=== PATIENT | female | born 1995 | race Caucasian/White ===

== ENCOUNTER → 2019-12-14 17:05 | Outpatient (BNVA) | payer OTHER, SELFPAY | PROVIDERS: Family Provider Nurse Practitioner Family; PCP Nurse Practitioner Family; Visit Provider Obstetrics & Gynecology | DX: N93.9 Abnormal uterine and vaginal bleeding, unspecified (principal) | CPT/HCPCS: 83001; 84443; 84703; 85025 ==

== ENCOUNTER → 2019-12-20 09:10 | Outpatient (BNVA) | payer OTHER, SELFPAY | PROVIDERS: Family Provider Nurse Practitioner Family; PCP Nurse Practitioner Family; Visit Provider Obstetrics & Gynecology | DX: N83.8 Other noninflammatory disorders of ovary, fallopian tube and broad ligament (principal); R10.2 Pelvic and perineal pain | CPT/HCPCS: 76830 ==

== ENCOUNTER 2020-01-16 10:01 | Observation (INO) | payer OTHER, SELFPAY ==
--- NOTE | 2020-01-14 12:50 | P.ANESASSM_ITS ---
Pre-Anesthetic Assessment Pre-Anesthetic Assessment: Height/Weight: Height 1.57 m Weight 60.781 kg Preop Diagnosis: endometriosis Proposed Procedure: Operation Date: 01/16/20 07:00 Proposed Procedures p Total Vaginal Hysterectomy(Not Applicable) - Isaiah Lyman MD Social: Social History: Tobacco Packs per day: 1/2 Pack years: 3 Comment: quit 3y Exam: Pre-Anes Outpt Exam: alert, oriented x 3, clear to auscultation jono aterally and regular rate & rhythm Airway: Submandibular: WNL Cervical ROM: WNL MP: 1 Musc/skel: Musc/skel: Lower Back Pain Comments: nonradiating Anesthetic Plan: ASA status: 2 Anesthesia: General PFSH Anesthesia PFSH: Social History Smoking and tobacco status: current every day smoker e-cigarettes E-Cigarette Details: vaporizer device and with nicotine Alcohol intake: never Substance/Drug Use: never Female Reproductive History: Date of last menstrual period: 01/01/20 Data Anesthesia Cardiac Studies: No Data to Display
[2020-01-16] VITALS (20 sets, daily range): BP systolic 84–118; BP diastolic 50–75; PULSE 62–87; RESP 12–20; TEMP 36.4–37; O2SAT 92–100; BMI 24.5
[2020-01-16] MEDS: sodium chloride 0.9% 1,000 ML 30 ML IV (06:34)
[2020-01-16] MEDS: ketorolac 30 mg/mL INJ IVP ×4 (06:37→23:55)
[2020-01-16] MEDS: scopolamine 1.5 Patch 1 PATCH TRANSDERMA (06:38)
--- NOTE | 2020-01-16 06:40 | P.ANESUD_ITS ---
Pre-Anesthetic Update Pre-Anesthetic Assessment: Date of Surgery/Procedure: 01/16/20 Preop Molly gnosis: Chronic pelvic pain, endometriosis Proposed Procedure: Operation Date: 01/16/20 07:00 Proposed Procedures p Total Vaginal Hysterectomy(Not Applicable) - Isaiah Lyman MD Last Intake: 20:00 Vitals: Temperature 98.1 F 01/16/20 06:10 Temperature Source Temporal Artery S can 01/16/20 06:10 Pulse Rate 65 01/16/20 06:10 Respiratory Rate 18 01/16/20 06:10 Blood Pressure 109/72 01/16/20 06:10 Blood Pressure Brooke n 84 01/16/20 06:10 Pulse Oximetry 97 01/16/20 06:10 Oxygen Delivery Me thod 01/16/20 06:13 Exam: Pre-Anes Outpt Exam: alert, oriented x 3, clear to auscultation bilaterally and regular rate & rhythm Cardiac Studies: No Data to Display
[2020-01-16 06:46] LABS: OR HCG Qualitative Urine Negative (Negative)
[2020-01-16] MEDS: vancomycin 1,000 MG in sodium chloride 0.9% 250 ML 250 MG IV (06:54)
--- NOTE | 2020-01-16 06:59 | W.PM.OPSUD ---
Surgery/Procedure H&P Update DATE OF PROCEDURE: January 16, 2020 DATE H&P PERFORMED: 01/14/20 H&P UPDATE INFORMATION: I have reviewed H&P completed within last 30 days and I have examined patient prior to procedure PREOP DIAGNOSIS: Chronic pelvic pain, endometriosis PLANNED PROCEDURE: Operation Date: 01/16/20 07:00 Proposed Procedures p Total Vaginal Hysterectomy(Not Applicable) - Isaiah Lyman MD
[2020-01-16 07:04] LABS: Basophils % 0.5 %; Eosinophils # 0.1 10^3/uL (0.0-0.8); Eosinophils % 2.7 %; Hematocrit 36.9 % (37.0-47.0); Hemoglobin 12.1 g/dL (11.5-15.3); Lymphocytes # 0.9 10^3/uL (0.8-4.8); Lymphocytes % 23.8 %; Mean Corpuscular HGB Conc 32.8 g/dL (30.0-36.0); Mean Corpuscular Hemoglobin 30.7 pg (28.0-34.0); Mean Corpuscular Volume 93.7 fL (81-99); Mean Platelet Volume 10.4 fL (7.4-10.4); Monocytes # 0.7 10^3/uL (0.2-0.9); Monocytes % 17.8 %; Neutrophils % 55.2 %; Nucleated Red Blood Cells % 0 %; Platelet Count 237 10^3/cmm (130-400); Red Blood Count 3.94 10^6/uL (4.1-5.3); White Blood Count 3.7 10^3/uL (4.0-10.0)
[2020-01-16 07:13] LABS: Add Urine Microscopic? YES; Bilirubin Urine Neg (NEGATIVE); Blood Urine Neg (Negative); Glucose Urine UA Norm (Normal); Ketones Urine Negative (Negative); Leukocyte Esterase Urine Negative (Negative); Nitrate Urine Negative (Negative); Protein Urine Neg (Negative); Specific Gravity, Urine 1.015 (1.005-1.030); Urine Appearance SL Hazy (CLEAR); Urine Color Yellow (Yellow); Urobilinogen Urine Norm (Negative); pH Urine 5 (5-7)
[2020-01-16 07:14] LABS: Squamous Epithelial Cell Urine 25-40 (0-5); WBC Urine RARE /hpf (0-5)
[2020-01-16 07:15] LABS: Add Urine Culture? No; Bacteria Urine 1+
[2020-01-16 07:17] LABS: Anion Gap 15.4 (5-19); Blood Urea Nitrogen 12 mg/dL (6-20); Calcium 9.8 mg/dL (8.5-10.5); Carbon Dioxide 29 mmol/L (22-29); Chloride 99 mmol/L (98-107); Glomerular Filtration Rate 101.1 mL/min (90-130); Glucose 90 mg/dL (65-115); Osmolality Calculated 284 mOsm/kg (285-295); Potassium 4.4 mmol/L (3.5-5.1); Sodium 139 mmol/L (136-145)
[2020-01-16] MEDS: estrogens Conjugated Cream 30 gm 1 APPLIC VAGINAL (08:50)
[2020-01-16] MEDS: fentaNYL 50 mcg/mL INJ 2mL IVP ×2 (09:11→09:16)
--- NOTE | 2020-01-16 09:11 | PM.OP ---
Operative Report Date of procedure: January 16, 2020 Pre-op Diagnosis: Chronic pelvic pain, endometriosis Post-op diagnosis: same Post-op Findings: normal size uterus Procedure Done: total vaginal hysterectomy Specimens removed/disposition: uterus Pathology: uterus Surgeon: Isaiah Lyman Anesthesia: General Estimated blood loss (mL): 100 IV fluids (mL): 1,200 Urine output (mL): 750 Complications: none Condition: stable Disposition: PACU Brief History: 24-year-old female with chronic pelvic pain and endometriosis treated with multiple medical management without resolution Procedure: After informed consent and risks, benefits, indications and alternatives reviewed with the patient was taken to the operating room. The patient was placed in dorsal lithotomy position prepped, and draped in the usual sterile fashion. The pre-procedure timeout verifying the correct patient, procedure, site and side, could not requirements was performed and acknowledge by the OR team. A Leahy catheter was placed. A Bookwalter vaginal retractor was placed into the vagina in usual manner visualize the cervix. Cervix was grasped with a single tooth tenaculum and circumferentially infiltrated with 1% Xylocaine with epinephrine. Then cervix was circumferentially incised with bovie and the bladder was dissected off the pubovesical cervical fascia anteriorly with a sponge stick and Metzenbaum scissors. The anterior peritoneal reflection was identified and the anterior cul-de-sac was entered sharply with Metzenbaum scissors. The same procedure was performed posteriorly and a posterior colpotomy was made through the posterior cul-de-sac space without difficulty and the posterior blade of the Bookwalter vaginal retractor was advanced posteriorly into the cul-de-sac. At this time, the left and right uterosacral ligaments were isolated and ligated with 0 Vicryl. The Enseal device was placed over the uterosacral ligaments on either side and was then used in a serial fashion up through the cardinal ligaments bilaterally cross-clamped, cut, and sealed with the Enseal device. Finally, the uterine arteries were cross-clamped, cut, sealed and ligated with the Enseal device. Hemostasis was assured. The broad ligaments were then serially clamped, sealed and cut with the Enseal device on both sides. Excellent hemostasis was visualized. Both cornua were clamped, sealed and cut with the Enseal device. Then the pedicles were then suture ligated with excellent hemostasis. The uterus was excised and submitted for pathologic evaluation. No other abnormalities were noted in the pelvic cavity. The peritoneum was then closed in a pursestring fashion with 0 Vicryl suture. The vaginal cuff angles were closed with [id number] #0 Vicryl suture on both sides and transfixed with the ipsilateral cardinal and uterosacral ligaments. she was given indigo carmine IV. The remainder of the vaginal cuff was closed with #0 Vicryl in a running locked fashion. At this time, instruments were removed from the vagina at hemostasis assured. Then the Leahy catheter was removed and cystoscope was inserted. The bladder was filled with sterile water. Complete evaluation of the bladder mucosa was performed noting no lacerations, dimpling, tears, bleeding of the mucosa or muscular layers. Both ureteral orifices were identified. Prompt excretion of urine from both ureteral orifices was noted. Cystoscope was withdrawn. Leahy catheter was then placed yielding clear blue/dinesh urine. A vaginal packing with Premarin cream was placed and the patient was taken out of dorsal lithotomy position and awakened from the general anesthesia. The patient tolerated the procedure well and was taken to the PACU recovery room in a stable condition. Sponge, lap, needle and instruments counts were correct x3.
[2020-01-16] MEDS: HYDROcodone-acetaminophen 5-325 mg Tablet PO ×3 (10:16→22:02)
[2020-01-16] MEDS: gabapentin 300 mg Capsule 600 MG PO ×3 (12:20→21:08)
[2020-01-16] MEDS: dextrose 5%-lactated ringers 1,000 ML 125 ML IV ×2 (12:20→21:08)
--- NOTE | 2020-01-16 12:42 | PC.NURSE ---
Patient updated on attempt to contact Dr. Lyman, and that this press writer will attempt to contact him again in about [address] Lyman hasn't returned call to the floor.
[2020-01-16] MEDS: HYDROmorphone 1 mg/mL INJ 1 mL 1.5 MG IVP ×2 (13:01→18:53)
--- NOTE | 2020-01-16 15:05 | PC.NURSE ---
This nurse in room due to BP machine alarming. BP was 67/32. Pt appeared very drowsy was able to open her eyes and answer all of my questions appropriately. She stated that she was not light headed or dizzy. She stated that she felt fine, but she was just tired. She stated that she was given a dose of Dilaudid about 2 hours ago. No further needs were voiced. This nurse will notify her primary nurse with an update.
[2020-01-16 16:33] LABS: Hematocrit 35.2 % (37.0-47.0); Hemoglobin 11.4 g/dL (11.5-15.3); Mean Corpuscular HGB Conc 32.4 g/dL (30.0-36.0); Mean Corpuscular Hemoglobin 30.4 pg (28.0-34.0); Mean Corpuscular Volume 93.9 fL (81-99); Mean Platelet Volume 10.3 fL (7.4-10.4); Platelet Count 229 10^3/cmm (130-400); Red Blood Count 3.75 10^6/uL (4.1-5.3); Red Cell Distribution Width 10.9 % (12.1-15.1); White Blood Count 5.6 10^3/uL (4.0-10.0)
[2020-01-16 16:49] LABS: Band Neutrophils Absolute 0.2 10^3/cmm (0.0-1.2); Lymphocytes 5 %; Monocytes Absolute 0.1 10^3/cmm (0.1-0.6); Segmented Neutrophils 91 %; Total Cells Counted 100 (0-100)
[2020-01-16 16:50] LABS: Platelet Estimate Normal (Normal)
--- NOTE | 2020-01-16 17:05 | PC.NURSE ---
Patient ambulated 1 time up OB hallway and back to her room. Tolerated well, denying any dizziness weakness or lightheadedness.
[2020-01-16] MEDS: docusate sodium 100 mg Capsule PO (18:56)
[2020-01-17 00:48] VITALS: RESP 16; O2SAT 97
[2020-01-17] MEDS: HYDROmorphone 1 mg/mL INJ 1 mL 1.5 MG IVP (00:48)
[2020-01-17] MEDS: HYDROcodone-acetaminophen 5-325 mg Tablet PO ×2 (04:49→11:06)
[2020-01-17 05:00] VITALS: BP 77/54; PULSE 72; RESP 14; TEMP 36.9; O2SAT 96
[2020-01-17 05:32] LABS: Hematocrit 32.4 % (37.0-47.0); Hemoglobin 10.3 g/dL (11.5-15.3); Mean Corpuscular HGB Conc 31.8 g/dL (30.0-36.0); Mean Corpuscular Hemoglobin 30.4 pg (28.0-34.0); Mean Corpuscular Volume 95.6 fL (81-99); Mean Platelet Volume 10.3 fL (7.4-10.4); Platelet Count 184 10^3/cmm (130-400); Red Blood Count 3.39 10^6/uL (4.1-5.3); Red Cell Distribution Width 11.2 % (12.1-15.1); White Blood Count 4.6 10^3/uL (4.0-10.0)
--- NOTE | 2020-01-17 06:16 | PC.NURSE ---
Patient complaints of pain an 8 out of 10. Nurse notes respirations of 12 and patient appearing groggy. O2 is 97% on room air.
--- NOTE | 2020-01-17 06:19 | PC.NURSE ---
Vaginal packing removed at this time.
[2020-01-17] MEDS: gabapentin 300 mg Capsule 600 MG PO (08:04)
[2020-01-17] MEDS: docusate sodium 100 mg Capsule PO (08:04)
[2020-01-17 09:15] VITALS: BP 94/55; PULSE 81; RESP 17; TEMP 36.9
--- NOTE | 2020-01-17 10:08 | PM.OBGYDC ---
Discharge Providers DOUGH PUNCHER Date of Admission: 01/16/20 10:01 Date of Discharge: 01/17/20 Attending Provider at Admission: Isaiah Lyman MD Attending Provider at Discharge: Isaiah Lyman MD Primary Care Provider: Dominique Tobar Diagnoses at Discharge Discharge Diagnosis (1) Chronic pelvic pain in female: Status: Acute Problem details: She was counseled regarding all the possible etiologies of chronic pelvic pain, its evaluation and treatment will depend on the diagnosis causing the pelvic pain. The pains is a closely associated with severe dysmenorrhea and highly suggestive of the possibility of endometriosis. (2) Endometriosis: Status: Acute Reason for Visit Reason for Visit: Reason For Visit: Endometriosis Chronic Pelvic [place] 23802 N80.9 R10.2 Hospital Course Hospital Course: 24-year-old female with a long-standing history of chronic pelvic pain Admitted for planned Total vaginal hysterectomy. The procedure was performed without complications. Stop observation uneventful. Pain tolerated with medical management pain medication. She is tolerating diet well, ambulating without difficulty, passing flatus, afebrile and hemodynamically stable. Physical Exam Narrative: EXAM NARRATIVE: GA: Alert and oriented ?3. HEENT: WNL. Heart: Regular rate and rhythm. Lungs: Clear to auscultation bilaterally. Abdomen: Bowel sounds present, nontender. LIQUEFACTION SUPERVISOR: No bleeding. Extremities: No edema, no cyanosis, no calves pain. Urinary Catheter Management^: Leahy Latex Free: Cath Placed During This Visit: no Reason for Continuing Indwelling Catheter: Perioperative Use in Selected Surgeries Discharge Data Data Completed and Pending: Pending at discharge Category Date Time Status Pathology: Surgic al [PTH] Routine Pth 01/16/20 09:05 Received Labs from last 24 hours 01/17/20 01/16/20 05:15 15:47 WBC 4.6 5.6 RBC 3.39 L 3.75 L Hgb 10.3 L 11.4 L Hct 32.4 L 35.2 L MCV 95.6 93.9 MCH 30.4 30.4 MCHC 31.8 32.4 RDW 11.2 L 10.9 L Plt Count 184 229 MPV 10.3 10.3 Total Counted 100 Segmented Neutroph ils 91 Band Neutrophils 3.0 Lymphocytes (Manua l) 5 Monocytes (Manual) 1.0 Absolute Monocytes 0.1 Platelet Estimate Normal Addt'l Data from Hospital Stay: Intake & Output 03/18/20 03/19/20 03/19/20 22:59 06:59 14:59 Intake Total 1000.000 / 2878.50 0 Output Total 900 / 3600 1150 / 4750 Balance 100.000 / -721.500 -1150 / -1871.500 Intake: IV 1000.000 / 2357.50 0 dextrose 5%-la ctated ringers 1, 1000.000 / 1000.00 0 000 ml @ 125 m ls/hr IV .Q8H NILSA Rx#:[id number] Output: Urine 900 / 3500 1150 / 4650 Vitals: Last Vital Signs Temp 98.5 F 01/17/20 05:00 Pulse 72 01/17/20 05:00 Resp 14 01/17/20 05:00 BP 77/54 01/17/20 05:00 Pulse Ox 96 01/17/20 05:00 Discharge Plan Discharge Patient Disposition: Home, Self-Care Condition: Stable Prescriptions: New ibuprofen 800 mg tablet 800 mg PO Q8H PRN (Reason: pain) Qty: 60 RF: 0 Continued tizanidine 4 mg capsule 4 mg PO DAILY PRN (Reason: Pain) RF: 0 hydrocodone-acetaminophen 10-300 mg tablet 1 tab PO Q6H MDD 5 PRN (Reason: Pain) RF: 0 escitalopram oxalate [Lexapro] 20 mg tablet 20 mg PO DAILY RF: 0 gabapentin 100 mg capsule 600 mg PO QID RF: 0 Discharge Orders: Discharge Order (Routine); Ordered 01/17/20 Ordered By: Isaiah Lyman Discharge Diet: As Directed Discharge Activity: Increase activity as tolerated Activity Restrictions/Additional Instructions: Pelvic rest for 6 weeks (no sex, no tampons, no vaginal douches). Return to the emergency room if any fever, increased bleeding or pain. 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
== END 2020-01-17 11:50 | disposition home or self-care (01) ==
LOC: OBGYN 10:02
PROVIDERS: Admitting Provider Obstetrics & Gynecology; PCP Nurse Practitioner Family; Visit Provider Obstetrics & Gynecology
PROC: (CPT 58260; principal; 2020-01-16 07:00)
DX: R10.2 Pelvic and perineal pain (principal); N80.9 Endometriosis, unspecified; F17.290 Nicotine dependence, other tobacco product, uncomplicated
CPT/HCPCS: 58260; 12345; 36415; 80048; 81001; 84703; 85007; 85025; 85027; 86850; 86900; 88307; 96374; 96375; G0378; J1100; J1170; J1580; J1885; J2001; J2405; J2704; J2710; J3010; J3370; J3490; J7030; J7050

== ENCOUNTER → 2020-03-07 13:07 | Outpatient (BNVA) | payer OTHER, SELFPAY | PROVIDERS: PCP Nurse Practitioner Family; Visit Provider Obstetrics & Gynecology | DX: R30.0 Dysuria (principal) | CPT/HCPCS: 80053; 81000 ==

== ENCOUNTER 2021-01-27 09:54 | Emergency (ER) | payer OTHER, SELFPAY ==
[2021-01-27 09:56] VITALS: BP 122/101; PULSE 97; RESP 16; TEMP 36.8; O2SAT 97; BMI 24.7
[2021-01-27 10:01] VITALS: BP 130/93; PULSE 105; RESP 16; O2SAT 97
--- NOTE | 2021-01-27 10:06 | CT_ITS ---
WS: [id number] CT CERVICAL SPINE HISTORY: neck pain with R arm radiculopathy TECHNIQUE: Contiguous 2.5 mm axial imaging performed through the entire cervical spine. Sagittal and coronal reformats also performed. All CT scans at [facility] use at least one of these do se optimization techniques: automated exposure control; mA and/or kV adjustment per patient size (inc ludes targeted exams where dose is matched to clinical indication); or iterative reconstruction. DLP: 325.14 mGy.cm COMPARISON: None available. Normal cervical alignment. Craniocervical junction, atlantodental interval and C1-C2 alignment is nor mal. Patient's head is tilted to the LEFT which may be due to torticollis and spasm. C2-C3: Normal. C3-C4: Normal. C4-C5: Normal. C5-C6: Normal. C6-C7: Normal. C7-T1: Normal. Soft tissues are normal. Lung apices are clear. CT/CT cervical spin wo con* [id number] IMPRESSION: 1. Patient's head is slightly tilted to the LEFT which may be due to mild spas m. 2. No fractures or significant disc protrusions.
--- NOTE | 2021-01-27 10:07 | ED_ITS ---
HPI - Extremity Problem General: Chief complaint: Extremity Injury, Upper Stated complaint: RIGHT SHOULDER PAIN Time Seen by Provider: 01/27/21 09:57 History of Present Illness: HPI Narrative: 25-year-old female presents emergency room with complaint of neck pain radiating into her right shoulder and right arm difficulty moving the right arm. She was seen by chiropractor yesterday and they did what they described as a scraping . Evidently the massage of the skin is resulted in a massive amount of bruising over the right upper back and scapula across the shoulder and down into the upper portion of the right arm. Complaint: extremity pain Onset (ago): hour(s) Pain Consistency: constant Location: right Quality: burning, aching and sharp Radiation: distal Relieving factors: nothing Exacerbating factors: range of motion Associated symptoms: Deny chest pain, fever(s) or rash Review of Systems Const: Denies: fever(s), chills, body aches, change in appetite, fatigue or malaise ENMT: Denies: throat pain, ear or mastoid pain, nasal discharge or nasal congestion Card: Denies: chest pain, edema, dyspnea on exertion or orthopnea Resp: Denies: dyspnea, productive cough or non-productive cough GI: Denies: abdominal pain, nausea, vomiting, hematemesis, coffee ground emesis, diarrhea, constipation, bloating, hematochezia or melena : Denies: flank pain, difficulty voiding, dysuria, urinary frequency or urinary urgency Skin/Breast: Denies: rash or pruritus PFS ED PFSH: Medical History Abnormal uterine bleeding 20-year-old female , with a history of chronic pelvic pain for the last 3 years, associated with severe dysmenorrhea and occasional irregular bleeding. Impression: She was counseled regarding all possible etiologies for normal uterine bleeding. Was also counseled regarding all possible treatment modalities. She refers she has previously been prescribed oral contraceptive pills and hormones and she refers her bleeding was worse while taking control pills. She is currently not using any contraceptive because she is trying to conceive, and her menses have been regular the last 6 months. Recorded 02/17/2018 04:58 PM by Muriel Jimenez MD Chronic pelvic pain in female She was counseled regarding all the possible etiologies of chronic pelvic pain, its evaluation and treatment will depend on the diagnosis causing the pelvic pain. The pains is a closely associated with severe dysmenorrhea and highly suggestive of the possibility of endometriosis. Endometriosis Severe dysmenorrhea 20-year-old female , with a history of chronic pelvic pain for the last 3 years, associated with severe dysmenorrhea and occasional irregular bleeding. Impression: Patient was counseled regarding all possible etiologies for severe dysmenorrhea. Most commonly the diagnosis that can be inferred with severe dysmenorrhea is endometriosis. She had been diagnosed with endometriosis and treated with Lupron. She was counseled regarding all treatment modalities again. Because of her plans for conceiving, hormonal therapy is not a choice for her. She was counseled regarding NSAIDs. She has been using NSAIDs as prescribed and she refers a significant improvement and can tell when she is not taking it as prescribed. She was encourage to continue NSAIDs. She was counseled regarding HSG to asses the fallopian tubes if she is not able to conceive. Follow-up in 3 months. Recorded 06/12/2018 09:[address] Isaiah Chicas MD Surgical History H/O laparoscopy (~2016) DR CHICAS History of tonsillectomy (~2011) Hx of appendectomy Family History Father Bipolar disorder (manic depression) Fibromyalgia Family/Other Ovarian cancer, Onset Age: 40 Maternal aunt Thyroid condition maternal aunt Other Patient denies medical problems Denies family history of Colon cancer Diabetes Heart disease Hyperlipidemia Breast cancer Hypertension Uterine cancer Social History Smoking and tobacco status: current every day smoker Alcohol intake: never Female Reproductive History: Date of last menstrual period: 01/01/20 Para: 1 Spontaneous abortions: Yes (1) Physical Exam Const: COMMON NORMALS: no acute distress GENERAL APPEARANCE: cooperative and comfortable ORIENTATION/CONSCIOUSNESS: Yes awake, Yes oriented to person, Yes oriented to place and Yes oriented to time HENMT: COMMON NORMALS: normocephalic, atraumatic and hearing grossly normal bilaterally HEAD & SCALP: normocephalic and atraumatic Eye: COMMON NORMALS: Equal, round and reactive pupils present, EOMs intact bilaterally, conjunctivae normal and no scleral icterus CONJUNCTIVA: Yes conjunctivae normal PUPIL: Yes Equal, round and reactive pupils present Neck/C-Spine: COMMON NORMALS: no lymphadenopathy, supple and no JVD Lymph: LYMPHATIC: no lymphadenopathy noted and no lymphedema noted Resp: COMMON NORMALS: normal respiratory effort, No retractions, No use of accessory muscles and clear to auscultation bilaterally AUSCULTATION: clear t o auscultation bilaterally Cardio: COMMON NORMALS: no JVD, regular rate, regular rhythm and No murmurs present (Cardio) RATE: regular rate RHYTHM: regular rhythm GI: COMMON NORMALS: Soft to palpation and No hepatosplenomegaly present AUSCULTATION: Yes normoactive bowel sounds PALPATION: Yes Soft to palpation, No Tenderness to palpation present (GI), No Guarding due to palpation present (GI) and Yes No hepatosplenomegaly present Extremity: COMMON NORMALS: normal to inspection, capillary refill normal, no clubbing, cyanosis or edema, no calf tenderness and no pedal edema Neuro: SENSORIUM/ORIENTATION: Yes oriented to person, Yes oriented to place and Yes oriented to time Skin: COMMON NORMALS: no rashes or lesions noted GENERAL SKIN EXAM: no rashes or lesions noted Course Vital Signs: Vital signs: Vital Signs Temperature 98.3 F 01/27/21 09:56 Pulse Rate 69 01/27/21 11:29 Respiratory Rate 18 01/27/21 11:29 Blood Pressure 117/83 01/27/21 11:29 Pulse Oximetry 99 01/27/21 11:29 MDM - Extremity (Nontraumatic) MDM Narrative: Medical decision making narrative: CT reviewed with patient gentle stretching exercises muscle relaxers follow-up with primary care if not improving may need to get more advanced imaging Lab Data: Labs: Lab Results 01/27/21 01/27/21 Range/Units 10:14 10:14 WBC 6.8 (4.0-10.0) 10^3/ uL RBC 4.81 (4.1-5.3) 10^6/u L Hgb 14.9 (11.5-15.3) g/dL Hct 44.3 (37.0-47.0) % MCV 92.1 (81-99) fL MCH 31.0 (28.0-34.0) pg MCHC 33.6 (30.0-36.0) g/dL RDW 11.2 L (12.1-15.1) % Plt Count 289 (130-400) 10^3/c mm MPV 9.7 (7.4-10.4) fL Neut % (Auto) 77.4 % Lymph % (Auto) 17.3 % Marion % (Auto) 4.5 % Eos % (Auto) 0.4 % Baso % (Auto) 0.3 % Neut # (Auto) 5.29 (1.8-7.7) 10^3/u L Lymph # (Auto) 1.2 (0.8-4.8) 10^3/u L Marion # (Auto) 0.3 (0.2-0.9) 10^3/u L Eos # (Auto) 0.0 (0.0-0.8) 10^3/u L Baso # (Auto) 0.0 (0.0-0.1) 10^3/u L Nucleated RBC % (a uto) 0 % Nucleated RBCs # 0.0 /100WBC Sodium 137 (136-145) mmol/L Potassium 3.9 (3.5-5.1) mmol/L Chloride 100 (98-107) mmol/L Carbon Dioxide 25 (22-29) mmol/L Anion Gap 15.9 (5-19) BUN 17 (6-20) mg/dL Creatinine 0.6 (0.5-0.9) mg/dL GFR Calculation 119.9 (90-130) mL/min Glucose 86 (65-115) mg/dL Calculated Osmolal ity 285 (285-295) mOsm/k g Calcium 9.6 (8.5-10.5) mg/dL Creatine Kinase 82 (26-192) U/L Discharge Plan Discharge Patient Disposition: Home Clinical Impression: Cervicalgia Condition: Stable Prescriptions: New diclofenac sodium 75 mg tablet,delayed release (DR/EC) 75 mg PO Q12H PRN (Reason: pain) Qty: 20 RF: 0 Medrol (Darvin) 4 mg tablets,dose pack See Rx Instructions .ROUTE .COMPLEX Qty: 21 RF: 0 tizanidine 4 mg tablet 4 mg PO Q6H PRN (Reason: muscle spasticity) Qty: 20 RF: 0 No Action hydrocodone-acetaminophen 10-300 mg tablet 1 tab PO Q6H MDD 5 PRN (Reason: Pain) RF: 0 escitalopram oxalate [Lexapro] 20 mg tablet 20 mg PO DAILY RF: 0 tizanidine 4 mg capsule See Rx Instructions PO BID PRN (Reason: Pain) RF: 0 gabapentin 100 mg capsule 600 mg PO QID RF: 0 alprazolam [Xanax] 0.25 mg tablet 0.25 mg PO DAILY PRNRF: 0 fluconazole [Diflucan] 150 mg tablet 150 mg PO DAILY Qty: 1 RF: 0 Discharge Orders: Discharge ED (Routine); Ordered 01/27/21 Ordered By: Pal Gaston Referrals: Dominique Tobar [Primary Care Provider] - Patient Instructions: Opioid Safety Activity Restrictions/Additional Instructions: Follow-up with your primary care doctor. Case management will help you arrange for a new PCP. Coding Level of Care Code ED Supervisor Ticket Sales for Chris Pulido
[2021-01-27 10:26] LABS: Basophils % 0.3 %; Eosinophils % 0.4 %; Hematocrit 44.3 % (37.0-47.0); Hemoglobin 14.9 g/dL (11.5-15.3); Lymphocytes # 1.2 10^3/uL (0.8-4.8); Lymphocytes % 17.3 %; Mean Corpuscular HGB Conc 33.6 g/dL (30.0-36.0); Mean Corpuscular Volume 92.1 fL (81-99); Mean Platelet Volume 9.7 fL (7.4-10.4); Monocytes # 0.3 10^3/uL (0.2-0.9); Monocytes % 4.5 %; Neutrophils # 5.29 10^3/uL (1.8-7.7); Neutrophils % 77.4 %; Nucleated Red Blood Cells % 0 %; Platelet Count 289 10^3/cmm (130-400); Red Blood Count 4.81 10^6/uL (4.1-5.3); Red Cell Distribution Width 11.2 % (12.1-15.1); White Blood Count 6.8 10^3/uL (4.0-10.0)
[2021-01-27] MEDS: ketorolac 30 mg/mL INJ IVP (10:41)
[2021-01-27 10:42] VITALS: RESP 18; O2SAT 98
[2021-01-27] MEDS: orphenadrine 30 mg/mL Inj 2 mL 60 MG IVP (10:42)
[2021-01-27] MEDS: morphine 4 mg/mL SDV 1 mL IVP (10:42)
[2021-01-27 10:48] LABS: Anion Gap 15.9 (5-19); Blood Urea Nitrogen 17 mg/dL (6-20); Calcium 9.6 mg/dL (8.5-10.5); Carbon Dioxide 25 mmol/L (22-29); Chloride 100 mmol/L (98-107); Creatine Phosphokinase 82 U/L (26-192); Creatinine Clr Calc Pharmacy 121.2943; Glomerular Filtration Rate 119.9 mL/min (90-130); Glucose 86 mg/dL (65-115); Osmolality Calculated 285 mOsm/kg (285-295); Potassium 3.9 mmol/L (3.5-5.1); Sodium 137 mmol/L (136-145)
[2021-01-27 11:29] VITALS: BP 117/83; PULSE 69; RESP 18; O2SAT 99
--- NOTE | 2021-01-29 13:20 | DCPLANNER ---
family services manager had message to speak with patient about getting established with a primary care physician. family services manager spoke with patient and she stated that she would like to be set up with a primary care physician at the [facility]. family services manager called the [facility], spoke with Fernanda, a follow up appointment was scheduled for Tuesday. February 03, 2021 at 9:30 with Letty Stiles. family services manager called patient and gave patient the appointment information. Patient stated that she would attend the appointment.
--- NOTE | 2021-02-11 13:19 | DCPLANNER ---
Patient had a follow up appointment scheduled for 02.03.21 with the [facility] clinic to establish care for primary care - patient did attend appointment.
== END 2021-01-27 11:30 | disposition home or self-care (01) ==
PROVIDERS: Emergency Provider Family Medicine; PCP Nurse Practitioner Family
DX: M54.2 Cervicalgia (principal); F17.210 Nicotine dependence, cigarettes, uncomplicated
CPT/HCPCS: 72125; 80048; 82550; 85025; 96374; 96375; 99284; J1885; J2270; J2360; J2930

== ENCOUNTER → 2022-05-24 08:59 | Outpatient (BNVA) | payer BC, SELFPAY | PROVIDERS: PCP Family Medicine Adult Medicine; Visit Provider Anesthesiology Pain Medicine | DX: G89.29 Other chronic pain (principal); M54.16 Radiculopathy, lumbar region; M54.41 Lumbago with sciatica, right side; M54.42 Lumbago with sciatica, left side; M79.604 Pain in right leg; M79.605 Pain in left leg; F17.290 Nicotine dependence, other tobacco product, uncomplicated | CPT/HCPCS: 72110; 99204 ==

== ENCOUNTER 2022-06-09 09:36 | Emergency (ER) | payer BC, MEDICAID, SELFPAY ==
[2022-06-09 10:16] VITALS: BP 128/83; PULSE 80; RESP 14; TEMP 36.8; O2SAT 97; BMI 26.3
--- NOTE | 2022-06-09 12:21 | US_ITS ---
WS: [id number] TRANSABDOMINAL PELVIC AND TRANSVAGINAL PELVIC ULTRASOUND HISTORY: Left pelvic pain COMPARISON: 12/20/2019 and 02/17/2018 Prior hysterectomy. No midline mass. Right ovary: 3.4 cm x 1.8 cm x 3.2 cm. Small caliber ovary. Several small peripheral cysts. Normal va scularity. No solid mass. Left ovary: 6.6 cm x 3.9 cm x 5.5 cm. Abnormal appearance of the LEFT adnexa. There is a hypoechoic, homogeneous mass of decreased echogenicity. This has been previously described and thought to be an e ndometrioma on prior studies. This solid homogeneous mass measures 3.6 x 2.5 x 2.2 cm and has been pr eviously described. Adjacent to this LEFT adnexal mass is a complex cystic structure with septations and low level echoes which is new. This additional mass measures 5.5 x 3.8 x 5.4 cm and displaces the endometrioma slightly inferior. There is a small amount of free fluid in the LEFT adnexa. This new m ass is probably a hemorrhagic cyst. US/US pelvic with transvaginal IMPRESSION: 1. New complex cystic mass with septations in the LEFT adnexa. This new mass i s probably a hemorrhagic cyst measuring 5.5 x 3.8 x 5.4 cm. Differential would include new endometrioma. Due to its large size short-term follow-up is recomme nded in 6-8 weeks to ensure resolution. 2. Additional homogeneous mass in the LEFT adnexa has been previously describe d and thought to be an endometrioma. 3. Small amount of free fluid in the cul-de-sac. 4. Prior hysterectomy.
--- NOTE | 2022-06-09 12:22 | ED_ITS ---
HPI - Abdominal Pain General: Chief Complaint: Abdominal Pain Stated Complaint: Abd pains Time Seen by Provider: 06/09/22 12:06 History of Present Illness: Patient is a 26-year-old female comes to the ED with abdominal pain. Patient has chronic pelvic pain and has been dealing with it for over the past [address] Chicas and he is done work-up on her pelvic pain. She has been diagnosed with endometriosis and has had a partial hysterectomy. Last night patient states her chronic pelvic pain got more severe and she currently rates it an 8 out of 10. Pain is in the left side of her pelvis. She endorses having some nausea and has vomited twice this morning. Denies any fevers, vaginal bleeding, dysuria, hematuria, constipation or diarrhea. Associated Symptoms: Reports nausea and vomiting; Denies chills, constipation, diarrhea, dysuria, fever(s), hematochezia and hematuria Related Data: Date of Last Menstrual Period: 01/01/20 Review of Systems Const: Denies: fever(s), chills or fatigue Eyes: Denies: change in vision or eye discomfort ENMT: Denies: throat pain, odynophagia, nasal discharge or nasal congestion Card: Denies: chest pain, palpitations, edema, swelling of feet/ankles, dyspnea on exertion or orthopnea Resp: Denies: dyspnea, productive cough or non-productive cough GI: Reports: nausea and vomiting; Denies: abdominal pain, diarrhea, constipation or hematochezia : Reports: pelvic pain (Left sided pelvic pain); Denies: flank pain, dysuria or hematuria Musc: Denies: neck pain, back pain or extremity swelling Skin/Breast: Denies: rash or new lesions Neuro: Denies: headache(s), numbness in extremities or weakness in extremities PFS ED PFSH: Medical History Aftercare following surgery of the genitourinary system Cervical myofascial strain Chronic low back pain with bilateral sciatica Chronic pelvic pain in female Depression Endometriosis with chronic pelvic pain Severe dysmenorrhea 20-year-old female , with a history of chronic pelvic pain for the last 3 years, associated with severe dysmenorrhea and occasional irregular bleeding. Impression: Patient was counseled regarding all possible etiologies for severe dysmenorrhea. Most commonly the diagnosis that can be inferred with severe dysmenorrhea is endometriosis. She had been diagnosed with endometriosis and treated with Lupron. She was counseled regarding all treatment modalities again. Because of her plans for conceiving, hormonal therapy is not a choice for her. She was counseled regarding NSAIDs. She has been using NSAIDs as prescribed and she refers a significant improvement and can tell when she is not taking it as prescribed. She was encourage to continue NSAIDs. She was counseled regarding HSG to asses the fallopian tubes if she is not able to conceive. Follow-up in 3 months. Recorded 06/12/2018 09:[address] Isaiah Chicas MD Surgical History H/O laparoscopy (~2016) DR CHICAS H/O: hysterectomy 01/16/2020- TVH per Dr. Chicas at [facility] History of tonsillectomy (~2011) Hx of appendectomy Family History Father Bipolar disorder (manic depression) Fibromyalgia Family/Other Ovarian cancer, Onset Age: 40 Maternal aunt Thyroid condition maternal aunt Other Patient denies medical problems Denies family history of Colon cancer Diabetes Heart disease Hyperlipidemia Breast cancer Hypertension Uterine cancer Social History History of recent travel: No Female Reproductive History: Date of last menstrual period: 01/01/20 Para: 1 Spontaneous abortions: Yes (1) Physical Exam Const: COMMON NORMALS: patient oriented x3 and alert GENERAL APPEARANCE: cooperative and comfortable HENMT: COMMON NORMALS: normocephalic HEAD & SCALP: normocephalic MOUTH: Normal oral and palatal mucosa present THROAT: posterior oropharynx normal and uvula midline Neck/C-Spine: COMMON NORMALS: supple GENERAL: Yes normal visual inspection Resp: COMMON NORMALS: normal respiratory effort, No retractions, No use of accessory muscles and clear to auscultation bilaterally AUSCULTATION: clear to auscultation bilaterally Cardio: COMMON NORMALS: regular rate, regular rhythm, S1 normal heart sound present, S2 normal heart sound present, No gallops present (Cardio), No clicks present (Cardio), No murmurs present (Cardio) and Peripheral pulses 2+ throughout RATE: regular rate RHYTHM: regular rhythm HEART SOUNDS: S1 normal heart sound present and S2 normal heart sound present PERIPHERAL PULSES: Peripheral pulses 2+ throughout GI: COMMON NORMALS: Normal to inspection, nondistended, normoactive bowel soun ds present, Soft to palpation and no masses PALPATION: Yes Soft to palpation and Yes Tenderness to palpation present (GI) (Left lower pelvic region) : COMMON NORMALS: Yes no CVA tenderness BLADDER/KIDNEY EXAM: Yes no CVA tenderness Back/Pelvis: COMMON NORMALS: no CVA tenderness Extremity: COMMON NORMALS: normal to inspection Neuro: COMMON NORMALS: patient oriented x3 SENSORIUM/ORIENTATION: Yes alert GAIT: Yes Normal gait present Skin: GENERAL SKIN EXAM: dry skin Course Vital Signs: Vital signs: Vital Signs Temperature 98.0 F 06/09/22 14:56 Pulse Rate 76 06/09/22 15:18 Respiratory Rate 14 06/09/22 15:18 Blood Pressure 122/68 06/09/22 15:18 Pulse Oximetry 99 06/09/22 15:18 Oxygen Delivery Me thod 06/09/22 14:56 MDM - Abdominal Pain Medical Decision Making Patient is a 26-year-old female comes to the ED with abdominal pain. Patient has chronic pelvic pain and has been dealing with it for over the past [address] Chicas and he is done work-up on her pelvic pain. She has been diagnosed with endometriosis and has had a partial hysterectomy. Vitals are stable. Patient appears nontoxic and in no acute distress or pain. She has left pelvic tenderness upon palpation. Labs are all unremarkable. Ultrasound of the pelvis shows a new complex left hemorrhagic cyst. Patient was stable for discharge home and diagnosed with a hemorrhagic cyst and pelvic pain. She has follow-up with Dr. Chicas in the next couple weeks. Return to ED precautions given. She was discharged home with Celebrex for pain. Return to ED precautions given. Patient understood and agreed with plan. Lab Data I reviewed the patient's lab results. : 06/09/22 13:30 06/09/22 13:30 Labs/Radiology: Radiology Impressions Pelvic/Transvag US 06/09/22 12:21 IMPRESSION: 1. New complex cystic mass with septations in the LEFT adnexa. This new mass is probably a hemorrhagic cyst measuring 5.5 x 3.8 x 5.4 cm. Differential would include new endometrioma. Due to its large size short-term follow-up is recommended in 6-8 weeks to ensure resolution. 2. Additional homogeneous mass in the LEFT adnexa has been previously described and thought to be an endometrioma. 3. Small amount of free fluid in the cul-de-sac. 4. Prior hysterectomy. Laboratory Results WBC 8.1 10^3/uL (4.0-10.0) 06/09/22 13:30 RBC 4.27 10^6/uL (4.1-5.3) 06/09/22 13:30 Hgb 12.9 g/dL (11.5-15.3) 06/09/22 13: Hct 39.4 % (37.0-47.0) 06/09/22 13: MCV 92.3 fl (81-99) 06/09/22 13:30 MCH 30.2 pg (28.0-34.0) 06/09/22 13: MCHC 32.7 g/dL (30.0-36.0) 06/09/22 13: RDW 11.1 % (12.1-15.1) L 06/09/22 13:30 Plt Count 285 10^3/cmm (130-400) 06/09/22 13:30 MPV 9.7 fL (7.4-10.4) 06/09/22 13:30 Neut % (Auto) 70.9 % 06/09/22 13:30 Lymph % (Auto) 20.0 % 06/09/22 13:30 Bates % (Auto) 7.2 % 06/09/22 13:30 Eos % (Auto) 1.4 % 06/09/22 13:30 Baso % (Auto) 0.4 % 06/09/22 13:30 Neut # (Auto) 5.71 10^3/uL (1.8-7.7) 06/09/22 13:30 Lymph # (Auto) 1.6 10^3/uL (0.8-4.8) 06/09/22 13:30 Bates # (Auto) 0.6 10^3/uL (0.2-0.9) 06/09/22 13:30 Eos # (Auto) 0.1 10^3/uL (0.0-0.8) 06/09/22 13:30 Baso # (Auto) 0.0 10^3/uL (0.0-0.1) 06/09/22 13:30 Nucleated RBC % (auto) 0 % 06/09/22 13:30 Nucleated RBCs # 0.0 /100WBC 06/09/22 13:30 Sodium 139 mmol/L (136-145) 06/09/22 13:30 Potassium 4.3 mmol/L (3.5-5.1) 06/09/22 13:30 Chloride 103 mmol/L (98-107) 06/09/22 13:30 Carbon Dioxide 25 mmol/L (22-29) 06/09/22 13:30 Anion Gap 15.3 (5-19) 06/09/22 13:30 BUN 16 mg/dL (6-20) 06/09/22 13:30 Creatinine 0.7 mg/dL (0.5-0.9) 06/09/22 13:30 GFR Calculation 99.6 mL/min (90-130) 06/09/22 13:30 Glucose 85 mg/dL (65-115) 06/09/22 13:30 Calculated Osmolality 288 mOsm/kg (285-295) 06/09/22 13:30 Calcium 9.3 mg/dL (8.5-10.5) 06/09/22 13:30 Total Bilirubin 0.2 mg/dL (0.15-1.2) 06/09/22 13:30 AST 15 U/L (0-32) 06/09/22 13:30 ALT 9 U/L (0-33) 06/09/22 13:30 Alkaline Phosphatase 55 IU/L (35-105) 06/09/22 13:30 Total Protein 6.7 g/dL (6.6-8.7) 06/09/22 13:30 Albumin 4.4 g/dL (3.5-5.2) 06/09/22 13:30 Globulin 2.3 g/dL (1.3-4.6) 06/09/22 13:30 HCG, Qual Cancelled 06/09/22 13:30 Urine Color Yellow (Yellow) 06/09/22 12:12 Urine Appearance Clear (CLEAR) 06/09/22 12:12 Urine pH 6 (5-7) 06/09/22 12:12 Ur Specific [place] 1.010 (1.005-1.030) 06/09/22 12:12 Urine Protein Neg (Negative) 06/09/22 12:12 Urine Glucose (UA) Norm (Normal) 06/09/22 12:12 Urine Ketones Negative (Negative) 06/09/22 12:12 Urine Blood Neg (Negative) 06/09/22 12:12 Urine Nitrate Negative (Negative) 06/09/22 12:12 Urine Bilirubin Neg (Negative) 06/09/22 12:12 Urine Urobilinogen Norm mg/dL (Negative) 06/09/22 12:12 Ur Leukocyte Esterase Negative (Negative) 06/09/22 12:12 Discharge Plan Discharge Patient Disposition: Home Clinical Impression: Pelvic pain, Hemorrhagic cyst of left ovary Condition: Stable Prescriptions: New Celebrex 100 mg capsule 100 mg PO BID PRN (Reason: pain) Qty: 30 0RF No Action duloxetine 40 mg capsule,delayed release(DR/EC) 40 mg PO DAILY Qty: 90 2RF ondansetron HCl 4 mg tablet 4 mg PO Q6H PRN (Reason: nausea and vomiting) Qty: 14 1RF ibuprofen 200 mg capsule 200 mg PO Q6H PRN (Reason: Pain) Orilissa 150 mg tablet 150 mg PO DAILY Qty: 28 0RF Discharge Orders: Discharge ED (Routine); Ordered 06/09/22 Ordered By: Meng Allen Referrals: Isael Segundo MD [Primary Care Provider] - Discharge Diet: Regular Discharge Activity: Increase activity as tolerated Patient Instructions: Ovarian Cyst (ED), Pelvic Pain in Women (ED) Activity Restrictions/Additional Instructions: Follow-up with your beekeeper doctor at your next scheduled appointment. Take medications as prescribed. Return to the ER or your medical provider if condition worsens. Please read and understand discharge instructions. Thank you for choosing [facility] for your healthcare needs today. Please realize this is an emergency room and that we are providing you with a medical screening exam and this may not be complete and all inclusive of all the testing and or work up that you may need to determine your ailment or severity of your illness. It is very important that you follow up as instructed or that you return to the Emergency Department should you have concerns or if your condition changes or worsens in any way. Coding Level of Care Code ED Applications Intern for Chg Fwd Exam Comprehensive
[2022-06-09 12:23] LABS: Add Urine Microscopic? NO; Charge for UA Resulting for Rev
[2022-06-09 12:41] LABS: Bilirubin Urine Neg (Negative); Blood Urine Neg (Negative); Glucose Urine UA Norm (Normal); Ketones Urine Negative (Negative); Leukocyte Esterase Urine Negative (Negative); Nitrate Urine Negative (Negative); Protein Urine Neg (Negative); Urine Appearance Clear (CLEAR); Urine Color Yellow (Yellow); Urobilinogen Urine Norm (Negative); pH Urine 6 (5-7)
[2022-06-09 13:31] VITALS: RESP 14
[2022-06-09] MEDS: ondansetron 2 mg/ML SDV 2 mL 4 MG IVP (13:31)
[2022-06-09] MEDS: morphine 4 mg/mL SDV 1 mL IVP (13:31)
[2022-06-09 13:36] LABS: Basophils % 0.4 %; Eosinophils # 0.1 10^3/uL (0.0-0.8); Eosinophils % 1.4 %; Hematocrit 39.4 % (37.0-47.0); Hemoglobin 12.9 g/dL (11.5-15.3); Lymphocytes # 1.6 10^3/uL (0.8-4.8); Mean Corpuscular HGB Conc 32.7 g/dL (30.0-36.0); Mean Corpuscular Hemoglobin 30.2 pg (28.0-34.0); Mean Corpuscular Volume 92.3 fl (81-99); Mean Platelet Volume 9.7 fL (7.4-10.4); Monocytes # 0.6 10^3/uL (0.2-0.9); Monocytes % 7.2 %; Neutrophils # 5.71 10^3/uL (1.8-7.7); Neutrophils % 70.9 %; Nucleated Red Blood Cells % 0 %; Platelet Count 285 10^3/cmm (130-400); Red Blood Count 4.27 10^6/uL (4.1-5.3); Red Cell Distribution Width 11.1 % (12.1-15.1); White Blood Count 8.1 10^3/uL (4.0-10.0)
[2022-06-09 14:00] LABS: Alanine Aminotransferase 9 U/L (0-33); Albumin Level 4.4 g/dL (3.5-5.2); Alkaline Phosphatase 55 IU/L (35-105); Anion Gap 15.3 (5-19); Aspartate Amino Transferase 15 U/L (0-32); Blood Urea Nitrogen 16 mg/dL (6-20); Calcium 9.3 mg/dL (8.5-10.5); Carbon Dioxide 25 mmol/L (22-29); Chloride 103 mmol/L (98-107); Creatinine Clr Calc Pharmacy 106.1306; Globulin 2.3 g/dL (1.3-4.6); Glomerular Filtration Rate 99.6 mL/min (90-130); Glucose 85 mg/dL (65-115); Osmolality Calculated 288 mOsm/kg (285-295); Potassium 4.3 mmol/L (3.5-5.1); Sodium 139 mmol/L (136-145); Total Bilirubin 0.2 mg/dL (0.15-1.2); Total Protein 6.7 g/dL (6.6-8.7)
[2022-06-09] MEDS: HYDROcodone-acetaminophen 7.5-325 mg Tablet 1 TAB PO (14:49)
[2022-06-09 14:56] VITALS: BP 119/75; PULSE 80; RESP 16; TEMP 36.7; O2SAT 100
--- NOTE | 2022-06-09 14:58 | PC.NURSE ---
Patient a/o, c/o RLQ pain, history of cyst, continues to have unrelieved pain. Labs drawn, pain meds given
[2022-06-09 15:17] LABS: HCG Qualitative Urine. Negative (Negative)
[2022-06-09 15:18] VITALS: BP 122/68; PULSE 76; RESP 14; O2SAT 99
== END 2022-06-09 15:20 | disposition home or self-care (01) ==
PROVIDERS: Emergency Provider Physician Assistant; PCP Family Medicine Adult Medicine
DX: N83.202 Unspecified ovarian cyst, left side (principal)
CPT/HCPCS: 76830; 76856; 80053; 81003; 81025; 85025; 96374; 96375; 99285; J2270; J2405

== ENCOUNTER → 2022-06-18 15:01 | Outpatient (BNVA) | payer BC, MEDICAID, SELFPAY | PROVIDERS: PCP Family Medicine Adult Medicine; Visit Provider Obstetrics & Gynecology | DX: G89.29 Other chronic pain (principal); R10.2 Pelvic and perineal pain | CPT/HCPCS: 76830; 76856 ==

== ENCOUNTER → 2022-06-28 10:10 | Outpatient (BNVA) | payer BC, MEDICAID, SELFPAY | PROVIDERS: PCP Family Medicine Adult Medicine; Visit Provider Anesthesiology Pain Medicine | DX: M79.604 Pain in right leg (principal); M79.605 Pain in left leg; G89.29 Other chronic pain; M54.41 Lumbago with sciatica, right side; M54.42 Lumbago with sciatica, left side | CPT/HCPCS: 99214 ==

== ENCOUNTER 2022-07-12 10:34 | Emergency (ER) | payer BC, MEDICAID, SELFPAY ==
[2022-07-12 10:42] VITALS: BP 117/84; PULSE 106; RESP 16; TEMP 36.3; O2SAT 96; BMI 26.5
[2022-07-12 11:36] LABS: Basophils % 0.8 %; Eosinophils # 0.2 10^3/uL (0.0-0.8); Eosinophils % 4.8 %; Hematocrit 44.5 % (37.0-47.0); Hemoglobin 14.7 g/dL (11.5-15.3); Lymphocytes # 1.6 10^3/uL (0.8-4.8); Lymphocytes % 33.5 %; Mean Corpuscular Hemoglobin 29.9 pg (28.0-34.0); Mean Corpuscular Volume 90.4 fl (81-99); Mean Platelet Volume 10.9 fL (7.4-10.4); Monocytes # 0.4 10^3/uL (0.2-0.9); Monocytes % 7.5 %; Neutrophils # 2.56 10^3/uL (1.8-7.7); Neutrophils % 53.2 %; Nucleated Red Blood Cells % 0 %; Platelet Count 218 10^3/cmm (130-400); Red Blood Count 4.92 10^6/uL (4.1-5.3); Red Cell Distribution Width 10.9 % (12.1-15.1); White Blood Count 4.8 10^3/uL (4.0-10.0)
[2022-07-12 11:41] VITALS: RESP 16
[2022-07-12] MEDS: morphine 4 mg/mL SDV 1 mL IVP ×2 (11:41→12:41)
[2022-07-12] MEDS: sodium chloride 0.9% 1,000 ML 999 ML IV (11:42)
[2022-07-12 11:47] VITALS: BP 112/82; PULSE 76; RESP 16; O2SAT 99
[2022-07-12 11:58] LABS: Add Urine Microscopic? NO; Charge for UA Resulting for Rev
[2022-07-12 12:04] LABS: Bilirubin Urine Neg (Negative); Blood Urine Neg (Negative); Glucose Urine UA Norm (Normal); Ketones Urine Negative (Negative); Leukocyte Esterase Urine Negative (Negative); Nitrate Urine Negative (Negative); Protein Urine Neg (Negative); Urine Appearance Clear (CLEAR); Urine Color Straw (Yellow); Urobilinogen Urine Norm (Negative); pH Urine 5 (5-7)
--- NOTE | 2022-07-12 12:15 | ED_ITS ---
HPI - General Adult General: Chief complaint: Abdominal Pain Stated complaint: Left ovary pain Time Seen by Provider: 07/12/22 11:16 History of Present Illness: Patient is a 26-year-old female with history endometriosis w/ partial hysterectomy, chronic pelvic pain, recent diagnosis of hemorrhagic ovarian cyst presenting to the emergency room with complaints of worsening left-sided pelvic and lower abdominal pain. Patient tells me that she is due to follow-up with Dr. Chicas for surgery on 07/26/2022. However due to the persistence of pain, patient's to come to the emergency room. Patient denies any fever or chills but reports multiple episodes of nausea vomiting and severe pain throughout the day. Patient denies any new vaginal discharge, or urinary complaints when hematuria or polyuria or dysuria. Patient has no complaints of filemon pain. No other abdominal surgeries. Patient denies any history of renal colic. Denies any cough, runny nose, sore throat, chest pain or shortness breath. Onset: acute on chronic Duration:ongoing x few months Location: LLQ abd and L pelvic Severity:moderate Associated symptoms: Reports nausea and vomiting; Deny chest pain, dyspnea, rash or palpitations Review of Systems Const: Denies: fever(s) or chills Eyes: Denies: change in vision ENMT: Denies: mouth pain Card: Denies: chest pain or palpitations Resp: Denies: dyspnea or non-productive cough GI: Reports: abdominal pain (+LLQ abd pain), nausea and vomiting; Denies: diarrhea : Reports: other (+L pelvic pain); Denies: dysuria Musc: Denies: extremity pain Skin/Breast: Denies: rash or new lesions Neuro: Denies: weakness in extremities Psych: Reports: other (Normal mood) Timo/Lymph: Denies: easy bruising PFS ED PFSH: Medical History Aftercare following surgery of the genitourinary system Cervical myofascial strain Chronic low back pain with bilateral sciatica Chronic pelvic pain in female Depression Endometriosis with chronic pelvic pain Severe dysmenorrhea 20-year-old female , with a history of chronic pelvic pain for the last 3 years, associated with severe dysmenorrhea and occasional irregular bleeding. Impression: Patient was counseled regarding all possible etiologies for severe dysmenorrhea. Most commonly the diagnosis that can be inferred with severe dysmenorrhea is endometriosis. She had been diagnosed with endometriosis and treated with Lupron. She was counseled regarding all treatment modalities again. Because of her plans for conceiving, hormonal therapy is not a choice for her. She was counseled regarding NSAIDs. She has been using NSAIDs as prescribed and she refers a significant improvement and can tell when she is not taking it as prescribed. She was encourage to continue NSAIDs. She was counseled regarding HSG to asses the fallopian tubes if she is not able to conceive. Follow-up in 3 months. Recorded 06/12/2018 09:[address] Isaiah Chicas MD Surgical History H/O laparoscopy (~2016) DR CHICAS H/O: hysterectomy 01/16/2020- TVH per Dr. Chicas at [facility] History of tonsillectomy (~2011) Hx of appendectomy Family History Father Bipolar disorder (manic depression) Fibromyalgia Family/Other Ovarian cancer, Onset Age: 40 Maternal aunt Thyroid condition maternal aunt Other Patient denies medical problems Denies family history of Colon cancer Diabetes Heart disease Hyperlipidemia Breast cancer Hypertension Uterine cancer Social History History of recent travel: No Female Reproductive History: Date of last menstrual period: 01/01/20 Para: 1 Spontaneous abortions: Yes (1) Physical Exam Const: COMMON NORMALS: alert HENMT: COMMON NORMALS: atraumatic HEAD & SCALP: atraumatic MOUTH: moist mucous membranes not abnormal Eye: COMMON NORMALS: EOMs intact bilaterally and conjunctivae normal CO NJUNCTIVA: Yes conjunctivae normal Neck/C-Spine: COMMON NORMALS: full ROM and supple Resp: COMMON NORMALS: normal respiratory effort and clear to auscultation bilaterally AUSCULTATION: clear to auscultation bilaterally Cardio: COMMON NORMALS: regular rate RATE: regular rate GI: COMMON NORMALS: Soft to palpation PALPATION: Yes Soft to palpation OTHER: +Mild LLQ abd TTP. NO guarding rebound, guarding, rigidity. No CVA tenderness to percussion. Neg Gardiner/Neg McBurney's point tenderness, no suprabupic tenderness to palpation. : OTHER: +Pelvic exam deferred per patient request Extremity: COMMON NORMALS: full ROM Neuro: SENSORIUM/ORIENTATION: Yes alert MOTOR EXAM: No Abnormal motor strength present and Other motor observations present (no focal motor deficits) Psych: COMMON NORMALS: speech normal SPEECH: Yes normal speech MOOD & AFFECT: Yes euthymic mood Course Vital Signs: Vital signs: Vital Signs Temperature 98.3 F 07/12/22 14:21 Pulse Rate 65 07/12/22 14:21 Respiratory Rate 15 07/12/22 14:21 Blood Pressure 136/85 07/12/22 14:21 Pulse Oximetry 95 07/12/22 14:21 Oxygen Delivery Me thod 07/12/22 11:47 MDM - General Adult Medical Decision Making Patient is a 26-year-old female with history endometriosis w/ partial hysterecto my, chronic pelvic pain, recent diagnosis of hemorrhagic ovarian cyst presenting to the emergency room with complaints of worsening left-sided pelvic and lower abdominal pain. Patient is due to follow-up with Dr. Chicas on 07/26 for surgery. On physical exam, patient has mild left lower quadrant tenderness palpation. Patient declined pelvic exam citing that she has had multiple pelvic exam in the last few weeks. Work-up showed white count 4.8. Lab within normal limit. UA is negative for any signs of UTI. US pelvic showed left-sided endometrioma unchanged compared to prior. Patient received pain meds in the ER reports feeling symptomatically improved. I have given patient follow up with our keycase assembler to be seen by our outpatient by Dr. Chicas. Patient aware of a call from our keycase assembler to schedule for appointment(s) and verbalizes understanding of the importance of following up. Rx percocet PRN pain Disposition: Discharge. Patient counseled regarding diagnostic impression, treatment plan. Patient given ED strict return precautions to return for continuation, worsening, or development of new symptoms. Instructed to f/u w/ Dr. Chicas regarding symptoms today. Patient verbalized understanding. Lab Data : 07/12/22 11:20 07/12/22 12:14 Radiology Impressions Transvaginal US 07/12/22 12:43 IMPRESSION: 1. LEFT adnexal mass is probably an endometrioma unchanged in size since 06/18/2022. Mass measures 3.3 x 2.9 x 3.3 cm. 2. Prior hysterectomy. Laboratory Results WBC 4.8 10^3/uL (4.0-10.0) 07/12/22 11:20 RBC 4.92 10^6/uL (4.1-5.3) 07/12/22 11:20 Hgb 14.7 g/dL (11.5-15.3) 07/12/22 11:20 Hct 44.5 % (37.0-47.0) 07/12/22 11:20 MCV 90.4 fl (81-99) 07/12/22 11:20 MCH 29.9 pg (28.0-34.0) 07/12/22 11: MCHC 33.0 g/dL (30.0-36.0) 07/12/22 11:20 RDW 10.9 % (12.1-15.1) L 07/12/22 11:20 Plt Count 218 10^3/cmm (130-400) 07/12/22 11:20 MPV 10.9 fL (7.4-10.4) H 07/12/22 11:20 Neut % (Auto) 53.2 % 07/12/22 11:20 Lymph % (Auto) 33.5 % 07/12/22 11:20 Walker % (Auto) 7.5 % 07/12/22 11:20 Eos % (Auto) 4.8 % 07/12/22 11:20 Baso % (Auto) 0.8 % 07/12/22 11:20 Neut # (Auto) 2.56 10^3/uL (1.8-7.7) 07/12/22 11:20 Lymph # (Auto) 1.6 10^3/uL (0.8-4.8) 07/12/22 11:20 Walker # (Auto) 0.4 10^3/uL (0.2-0.9) 07/12/22 11:20 Eos # (Auto) 0.2 10^3/uL (0.0-0.8) 07/12/22 11:20 Baso # (Auto) 0.0 10^3/uL (0.0-0.1) 07/12/22 11:20 Nucleated RBC % (auto) 0 % 07/12/22 11:20 Nucleated RBCs # 0.0 /100WBC 07/12/22 11:20 Sodium 139 mmol/L (136-145) 07/12/22 12:14 Potassium 4.6 mmol/L (3.5-5.1) 07/12/22 12:14 Chloride 104 mmol/L (98-107) 07/12/22 12:14 Carbon Dioxide 28 mmol/L (22-29) 07/12/22 12:14 Anion Gap 11.6 (5-19) 07/12/22 12:14 BUN 17 mg/dL (6-20) 07/12/22 12:14 Creatinine 0.8 mg/dL (0.5-0.9) 07/12/22 12:14 GFR Calculation 85.4 mL/min (90-130) L 07/12/22 12:14 Glucose 83 mg/dL (65-115) 07/12/22 12:14 Calculated Osmolality 289 mOsm/kg (285-295) 07/12/22 12:14 Calcium 8.7 mg/dL (8.5-10.5) 07/12/22 12:14 Total Bilirubin 0.3 mg/dL (0.15-1.2) 07/12/22 12:14 AST 14 U/L (0-32) 07/12/22 12:14 ALT 10 U/L (0-33) 07/12/22 12:14 Alkaline Phosphatase 61 U/L (35-105) 07/12/22 12:14 Total Protein 6.6 g/dL (6.6-8.7) 07/12/22 12:14 Albumin 4.1 g/dL (3.5-5.2) 07/12/22 12:14 Globulin 2.5 g/dL (1.3-4.6) 07/12/22 12:14 Lipase 264 U/L (13-60) H 07/12/22 12:14 HCG, Qual Negative (Negative) 07/12/22 11:45 Urine Color Straw (Yellow) 07/12/22 11:45 Urine Appearance Clear (CLEAR) 07/12/22 11:45 Urine pH 5 (5-7) 07/12/22 11:45 Ur Specific [place] 1.010 (1.005-1.030) 07/12/22 11:45 Urine Protein Neg (Negative) 07/12/22 11:45 Urine Glucose (UA) Norm (Normal) 07/12/22 11:45 Urine Ketones Negative (Negative) 07/12/22 11:45 Urine Blood Neg (Negative) 07/12/22 11:45 Urine Nitrate Negative (Negative) 07/12/22 11:45 Urine Bilirubin Neg (Negative) 07/12/22 11:45 Urine Urobilinogen Norm mg/dL (Negative) 07/12/22 11:45 Ur Leukocyte Esterase Negative (Negative) 07/12/22 11:45 Imaging Data Other Imaging: Radiologist's impression: [email or web address] [place] [address] Ultrasound Report Signed Patient: Ellie Gardiner Unit #: [id number] : 1995 Age/Sex: 26 / F ADM Date: 07/12/22 Loc: ER Room/Bed: Attending Dr: Ordering Provider/Ordering MD: Adair Norris MD Date of Service: 07/12/22 Procedure(s): US transvaginal 92810 Accession Number(s): [id number] Report Number: [id number] WS: [id number] TRANSVAGINAL PELVIC ULTRASOUND HISTORY: L sided pelvic pain COMPARISON: None available. Prior hysterectomy. No midline mass and no free fluid. Right ovary: 3.5 cm x 2.4 cm x 2.0 cm. Normal size and vascularity, no cystic or solid masses. Numerous small peripheral follicles. Normal vascularity. Left ovary: 4.5 cm x 3.4 cm x 3.2 cm. Homogeneous LEFT adnexal mass closely associated with the ovary. Mass has low level echoes throughout and measures 3.3 x 2.9 x 3.3 cm. Noted on prior studies without significant increase in size. The adjacent ovary contains a few small follicles. No free fluid. US/US transvaginal [id number] IMPRESSION: ? 1.? LEFT adnexal mass is probably an endometrioma unchanged in size since 06/18/2022. Mass measures 3.3 x 2.9 x 3.3 cm. 2.? Prior hysterectomy. ? ? ? Dictated By: Nadia Wang DO Signed By: Nadia Wang DO Signed Date/Time: 07/12/22 1327 DD/ 1324 Discharge Plan Discharge Patient Disposition: Home Clinical Impression: Endometrioma, Pelvic pain Condition: Stable Prescriptions: No Action ibuprofen 200 mg capsule 200 mg PO Q6H PRN (Reason: Pain) tizanidine 4 mg tablet 4 mg PO BID PRN (Reason: muscle spasticity) Qty: 60 0RF ondansetron HCl 4 mg tablet 4 mg PO Q6H PRN (Reason: nausea and vomiting) Qty: 14 1RF duloxetine 40 mg capsule,delayed release(DR/EC) 40 mg PO DAILY Rx Instructions: TAKE 1 CAPSULE BY MOUTH DAILY Orilissa 150 mg tablet 150 mg PO DAILY Rx Instructions: TAKE 1 TABLET BY MOUTH EVERY DAY Discharge Orders: Discharge ED (Routine); Ordered 07/12/22 Ordered By: Adair Norris Referrals: Isael Segundo MD [Primary Care Provider] - Activity Restrictions/Additional Instructions: Come back if you have any new or concerning issues. Please follow-up with Dr. Chicas. Come back to the emergency have any new extremity complaints including worsening pain or any new concerning issues. Coding Level of Care Code ED General House Worker for Chg Fwd Exam Comprehensive
[2022-07-12 12:41] VITALS: RESP 15; O2SAT 99
--- NOTE | 2022-07-12 12:43 | US_ITS ---
WS: [id number] TRANSVAGINAL PELVIC ULTRASOUND HISTORY: L sided pelvic pain COMPARISON: None available. Prior hysterectomy. No midline mass and no free fluid. Right ovary: 3.5 cm x 2.4 cm x 2.0 cm. Normal size and vascularity, no cystic or solid masses. Jin us small peripheral follicles. Normal vascularity. Left ovary: 4.5 cm x 3.4 cm x 3.2 cm. Homogeneous LEFT adnexal mass closely associated with the ovary . Mass has low level echoes throughout and measures 3.3 x 2.9 x 3.3 cm. Noted on prior studies withou t significant increase in size. The adjacent ovary contains a few small follicles. No free fluid. US/US transvaginal [id number] IMPRESSION: 1. LEFT adnexal mass is probably an endometrioma unchanged in size since 2021. Mass measures 3.3 x 2.9 x 3.3 cm. 2. Prior hysterectomy.
[2022-07-12 12:55] LABS: Alanine Aminotransferase 10 U/L (0-33); Albumin Level 4.1 g/dL (3.5-5.2); Alkaline Phosphatase 61 U/L (35-105); Anion Gap 11.6 (5-19); Aspartate Amino Transferase 14 U/L (0-32); Blood Urea Nitrogen 17 mg/dL (6-20); Calcium 8.7 mg/dL (8.5-10.5); Carbon Dioxide 28 mmol/L (22-29); Chloride 104 mmol/L (98-107); Globulin 2.5 g/dL (1.3-4.6); Glomerular Filtration Rate 85.4 mL/min (90-130); Glucose 83 mg/dL (65-115); Lipase 264 U/L (13-60); Osmolality Calculated 289 mOsm/kg (285-295); Potassium 4.6 mmol/L (3.5-5.1); Sodium 139 mmol/L (136-145); Total Bilirubin 0.3 mg/dL (0.15-1.2); Total Protein 6.6 g/dL (6.6-8.7)
[2022-07-12 13:21] LABS: HCG Qualitative Urine. Negative (Negative)
[2022-07-12 14:21] VITALS: BP 136/85; PULSE 65; RESP 15; TEMP 36.8; O2SAT 95
== END 2022-07-12 14:23 | disposition home or self-care (01) ==
PROVIDERS: Emergency Provider Emergency Medicine; PCP Family Medicine Adult Medicine
DX: N80.9 Endometriosis, unspecified (principal)
CPT/HCPCS: 36415; 76830; 80053; 81003; 81025; 83690; 85025; 96361; 96374; 96375; 99285; J2270; J7030

== ENCOUNTER 2022-07-21 10:38 | Day surgery (SDC) | payer BC, MEDICAID, SELFPAY ==
[2022-07-16 13:02] VITALS: BMI 26.5
--- NOTE | 2022-07-16 14:09 | ANES.PREANE2 ---
Pre-Anesthetic Assessment Height/Weight: Height 1.57 m Weight 65.771 kg Preop Diagnosis: Chronic pelvic pain, endometriosis Operation Date: 07/21/22 12:55 Proposed Procedures p Left laparoscopic cystectomy 45115,R10.2,N80.9(Left) - Isaiah Chicas MD Familial anesthetic complications: None Was Beta Joselo taken within 24 hours: N/A Was Clonidine taken within 24 hours: N/A Social No alcohol and No tobacco Exam alert, oriented x 3, clear to auscultation bilaterally and regular rate & rhythm Airway Submandibular: within normal limits Cervical ROM: within normal limits Mallampati: Class I Dentition: full History/ROS No significant complaints Pulmonary None reported CV/HEM None reported Chronic pelvic pain Hepatic None reported GI None reported Metabolic None reported Musc/skel Lower Back Pain Neuropsych Depression RLS Anesthetic Plan ASA status: 2 Anesthesia: Anesthesia Evaluation and General Other: We discussed risk and benefits of general anesthesia including PONV, sore throat (sometimes severe), corneal abrasion, positioning and peripheral nerve injuries, life threatening allergic reaction, post operative ICU admission requiring prolonged intubation, stroke, heart attack, , and rare incidences of recall. Patient consents to proceed with general anesthesia. Risk of > 500 ml blood loss (7ml/kg in children): No Medications/Allergies Home Medications Medication Instructions Recorded Confirmed Last Taken Type ibuprofen 200 mg capsule 200 mg PO Q6H PRN Pain 05/24/22 07/16/22 Unknown History tizanidine 4 mg tablet 4 mg PO BID PRN muscle spasticity 06/28/22 07/16/22 Unknown Rx #60 tabs ondansetron HCl 4 mg tablet 4 mg PO Q6H PRN nausea and 07/02/22 07/16/22 Unknown Rx vomiting #14 tabs duloxetine 40 mg capsule,delayed 40 mg PO DAILY 07/16/22 07/16/22 Unknown History release elagolix 150 mg tablet (Orilissa) 150 mg PO DAILY 07/16/22 07/16/22 Unknown History Allergies Allergy/AdvReac Type Severity Reaction Status Date / Time cinnamon Allergy Severe difficulty Verified 07/16/22 13:00 breathing amoxicillin Allergy HIVES Verified 07/16/22 13:00 Penicillins Allergy DIFFICULTY Verified 07/16/22 13:00 BREATHING watermelon Allergy tongue and Verified 07/16/22 13:00 throat itch latex AdvReac skin peels Verified 07/16/22 13:00 chlorine Allergy Mild ALGY-Bliste Uncoded 07/16/22 13:00 r PFSH Anesthesia Medical History Aftercare following surgery of the genitourinary system Cervical myofascial strain Chronic low back pain with bilateral sciatica Chronic pelvic pain in female Depression Endometriosis with chronic pelvic pain Severe dysmenorrhea 20-year-old female , with a history of chronic pelvic pain for the last 3 years, associated with severe dysmenorrhea and occasional irregular bleeding. Impression: Patient was counseled regarding all possible etiologies for severe dysmenorrhea. Most commonly the diagnosis that can be inferred with severe dysmenorrhea is endometriosis. She had been diagnosed with endometriosis and treated with Lupron. She was counseled regarding all treatment modalities again. Because of her plans for conceiving, hormonal therapy is not a choice for her. She was counseled regarding NSAIDs. She has been using NSAIDs as prescribed and she refers a significant improvement and can tell when she is not taking it as prescribed. She was encourage to continue NSAIDs. She was counseled regarding HSG to asses the fallopian tubes if she is not able to conceive. Follow-up in 3 months. Recorded 06/12/2018 09:[address] Isaiah Chicas MD Surgical History H/O laparoscopy (~2016) DR CHICAS H/O: hysterectomy 01/16/2020- [facility] per Dr. Chicas at [facility] History of tonsillectomy (~2011) Hx of appendectomy Family History Father Bipolar disorder (manic depression) Fibromyalgia Family/Other Ovarian cancer, Onset Age: 40 Maternal aunt Thyroid condition maternal aunt Other Patient denies medical problems Denies family history of Colon cancer Diabetes Heart disease Hyperlipidemia Breast cancer Hypertension Uterine cancer Social History History of recent travel: No Female Reproductive History Date of last menstrual period: 01/01/20 Para: 1 Spontaneous abortions: Yes (1) Data Anesthesia Cardiac Studies: No Data to Display
[2022-07-21] VITALS (15 sets, daily range): BP systolic 111–139; BP diastolic 55–93; PULSE 60–86; RESP 17–22; TEMP 36.4–36.9; O2SAT 96–100
[2022-07-21] MEDS: sodium chloride 0.9% 1,000 ML 30 ML IV (11:18)
[2022-07-21] MEDS: scopolamine 1.5 Patch 1 PATCH TRANSDERMA (11:19)
--- NOTE | 2022-07-21 11:30 | P.ANESUD_ITS ---
Pre-Anesthetic Update Pre-Anesthetic Assessment: Date of Surgery/Procedure: 07/21/22 Preop Molly gnosis: Left ovarian cyst/endometrioma Proposed Procedure: Operation Date: 07/21/22 12:35 Proposed Procedures p Left laparoscopic cystectomy 21543,R10.2,N80.9(Left) - Isaiah Lyman MD Any changes to Pre-Anesthetic Assessment?: No Last Intake: Intake Last Liquid Date 07/20/22 Last Liquid Time 21:00 Last Solid Date 07/20/22 Last Solid Time 21:00 Vitals: Temperature 98.4 F 07/21/22 10:50 Temperature Source Temporal Artery S can 07/21/22 10:50 Pulse Rate 86 07/21/22 10:50 Respiratory Rate 17 07/21/22 10:50 Blood Pressure 125/93 07/21/22 10:50 Blood Pressure Brooke n 103 07/21/22 10:50 Pulse Oximetry 98 07/21/22 10:50 Oxygen Delivery Me thod 07/21/22 10:53 Exam: Pre-Anes Outpt Exam: alert, oriented x 3, clear to auscultation bilaterally and regular rate & rhythm Cardiac Studies: No Data to Display
[2022-07-21] MEDS: fentaNYL 50 mcg/mL INJ 2mL IVP ×3 (13:15→16:44)
--- NOTE | 2022-07-21 13:31 | W.PM.OPSUD ---
Surgery/Procedure H&P Update DATE OF PROCEDURE: July 21, 2022 DATE H&P PERFORMED: 07/19/22 H&P UPDATE INFORMATION: I have reviewed H&P completed within last 30 days, I have examined patient prior to procedure and No changes to prior documentation PREOP DIAGNOSIS: Left ovarian cyst/endometrioma PLANNED PROCEDURE: Operation Date: 07/21/22 12:35 Proposed Procedures p Left laparoscopic cystectomy 70603,R10.2,N80.9(Left) - Isaiah Lyman MD
[2022-07-21] MEDS: vancomycin 1,000 MG in sodium chloride 0.9% 250 ML 250 MG IV (14:53)
--- NOTE | 2022-07-21 16:12 | P.OP_ITS ---
Operative Report Date of procedure: July 21, 2022 Pre-op diagnosis: Preop Diagnosis Left ovarian cyst/endometrioma Post-op diagnosis: Same as above Post-op findings: Enlarged left ovary with endometriosis. Left fallopian tube with endometriosis. Procedure done: Laparoscopic left oophorectomy. Lysis of adhesions Specimens removed/disposition: Left ovary Surgeon: Isaiah Lyman MD Estimated blood loss (mL): 5 IV fluids (mL): 750 Urine output (mL): 100 Procedure: DESCRIPTION OF PROCEDURE: After informed consent, the patient was taken to the operating room where general anesthesia was administered. The patient was examined under anesthesia and found to have a normal uterus with normal adnexa. She was placed in the dorsal lithotomy position and prepped and draped in sterile fashion. Pre-Proce dure Time-Out verifying the correct patient identity, correct procedure verified with consent, correct site and side, correct patient position, availability of correct implants and any special equipment or requirements was performed and acknowledge by the OR team. A sponge stick was placed in the vagina. An intraumbilical incision was made with a scalpel. While tenting up on the abdomen, a Verres needle with sleeve was admitted into the intra-abdominal cavity. A saline drop test was performed and noted to be within normal limits. Pneumoperitoneum was attained with 4 liters of carbon dioxide. The Verres needle was removed. A 5 mm trocar and sleeve were admitted into the abdomen and laparoscopic confirmation of location was achieved, A second incision was made 3 cm above the symphysis pubis, and a 10 mm trocar and sleeve were admitted into the abdomen under direct, laparoscopic visualization without complication. A survey revealed normal abdominal anatomy but the pelvic survey shows normal right adnexa. However a left ovarian complex mass with adhesions was noted. A third incision was made in the left lower quadrant and a 10 mm trocar and sleeve were admitted into the abdomen under direct visualization without complications. A 5 mm blunt probe was advanced through the second trocar sleeve, and light manipulation to assess the posterior aspects was performed. Then while adhesion were lysed with the Enseal device the left side Infundibular ligament was identified. The ureter was confirmed along the pelvic side wall and peristalsis was noted. The Enseal device was then used to clamp, sealed and transcepted at middistance, again being sure to be clear of the ureter and the left fallopian tube and ovary were removed. Good hemostasis was assure on both sides. Pelvis areas was copiously irrigated and suctioned. Carbon dioxide was allowed to escape from the abdomen. The instruments were removed, and skin cover with a bandage. The instruments were removed from the vagina, and excellent hemostasis was noted. The patient tolerated the procedure well, and sponge, lap and needle count were correct times two. The patient taken to the recovery room in good condition.
--- NOTE | 2022-07-21 16:47 | SUR.PHASEI ---
1620 PT TO PACU 5 PT AWAKES TO VOICE, PT WITH GOOD RESP NOTED VSS , MONITOR SR WITH NO ECTOPY, IV TO RT AC #20 WITH 100ML NS UP AT KVO RATE PER GRAVITY ID BRACELET TO LT WRIST , PT ID'D WITH 2 IDENTIFERS, ABDOMEN SOFT WITH 3 SITES WITH SKIN GLUE, LATEX FREE MÉNDEZ WITH DD STATLOCK PLACED TO RT INNER THIGH WITH YELLOW URINE NOTED TO TUBING AND BAG.
--- NOTE | 2022-07-21 17:03 | SUR.PHASEI ---
1652 PT TO OPS AWAKE ALERT REQUESTS SPRITE [employer] CR[employer]ERS, PT S/O AT BEDSIDE. ABDOMEN REMAINS SOFT 3 SITES D/I
[2022-07-21] MEDS: oxyCODONE-APAP 5-325 mg Tablet 1 TAB PO (17:14)
--- NOTE | 2022-07-21 17:40 | SUR.PHASEII ---
Patient came to Post Op with a choi in from the procedure. A 10 ml syringe was used to remove 10 ml fluid from catheter balloon, choi was removed. patient tolerated well.
== END 2022-07-21 17:42 | disposition home or self-care (01) ==
PROVIDERS: PCP Family Medicine Adult Medicine; Visit Provider Obstetrics & Gynecology
PROC: (CPT 58662; principal; 2022-07-21 12:25)
DX: N83.202 Unspecified ovarian cyst, left side (principal); N80.1 Endometriosis of ovary
CPT/HCPCS: 58661; 86850; 86900; 88305; J1100; J1200; J1885; J2250; J2405; J2704; J2710; J3010; J3370; J3490; J7030; J7050

== ENCOUNTER → 2022-08-09 14:44 | Outpatient (BNVA) | payer BC, MEDICAID, SELFPAY | PROVIDERS: PCP Family Medicine Adult Medicine; Visit Provider Obstetrics & Gynecology | DX: R23.2 Flushing (principal); Z48.816 Encounter for surgical aftercare following surgery on the genitourinary system | CPT/HCPCS: 83001 ==

== ENCOUNTER 2022-08-13 12:46 | Outpatient (CLI) | payer BC, MEDICAID, SELFPAY ==
--- NOTE | 2022-08-13 13:00 | MR_ITS ---
WS: [id number] MRI LUMBAR SPINE NONCONTRAST TECHNIQUE: Sagittal T1, T2 and STIR imaging. Axial T1 and T2 imaging. CLINICAL INFORMATION: M54.16 - Radiculopathy, lumbar region COMPARISON: None. FINDINGS: Mild lumbar curve. No acute compression. No high-grade central canal stenosis. Small disc protrusions T10-T11, T11-T12, T12-L1. Tiny annular fissure T10-T11 L1-L2: Normal. L2-L3: Normal. L3-L4: Mild annular bulging. Small RIGHT foraminal protrusion impinges the exiting RIGHT L3 nerve julián t with moderate RIGHT foraminal narrowing. Recommend correlation for RIGHT L3 nerve root symptoms. LE FT foramen is patent. Mild facet arthropathy. L4-L5: Minimal annular bulging. Mild facet arthropathy. Tiny RIGHT foraminal protrusion with mild RIG HT foraminal narrowing. Mild facet arthropathy. Spinal canal is patent. L5-S1: No significant disc bulging. Mild facet arthropathy. Spinal canal and foramen are patent. Visualized pelvic bony structures: Normal. Paravertebral soft tissues: Normal. Small LEFT renal cyst. MR/MR lumbar spine wo con* [id number] IMPRESSION: 1. Mild lumbar curve. No acute compression. No high-grade central canal stenos is. 2. Small RIGHT proximal foraminal protrusion L3-L4 impinges the exiting RIGHT L3 nerve root. Correlation for RIGHT L3 nerve root symptoms. 3. Tiny RIGHT foraminal protrusion L4-L5 slightly contacts the exiting RIGHT L 4 nerve root. 4. Mild facet arthropathy L3-L5. 5. Small disc protrusions in the lower thoracic spine at T10-T11 T11-T12 and T 12-L1. Tiny annular fissure at T10-T11.
== END 2022-08-13 12:47 | disposition home or self-care (01) ==
LOC: RAD 12:47
PROVIDERS: PCP Family Medicine Adult Medicine; Visit Provider Anesthesiology Pain Medicine
DX: M54.16 Radiculopathy, lumbar region (principal); M51.26 Other intervertebral disc displacement, lumbar region; M51.24 Other intervertebral disc displacement, thoracic region; M47.816 Spondylosis without myelopathy or radiculopathy, lumbar region
CPT/HCPCS: 72148

== ENCOUNTER → 2022-11-02 15:32 | Outpatient (BNVA) | payer BC, MEDICAID, SELFPAY | PROVIDERS: PCP Family Medicine Adult Medicine; Visit Provider Obstetrics & Gynecology | DX: R10.2 Pelvic and perineal pain (principal) | CPT/HCPCS: 76830 ==

== ENCOUNTER 2023-08-02 15:48 | Outpatient (CLI) | payer BC, MEDICAID, SELFPAY ==
--- NOTE | 2023-08-02 16:22 | XR_ITS ---
WS: [email or web address] EXAMINATION: XR shoulder LT min 2V* [id number] REASON FOR EXAM: PAIN COMPARISON: None available. ORDER DATE: 08/02/2023 4:30 PM TECHNIQUE: 3 views of the left shoulder were obtained. X-RAY FINDINGS: No fractures or dislocations. Normal motion of the shoulder with internal/external rotation. No degenerative changes. Acromioclavicular joint appears unremarkable. Limited visualization of the adjacent hemithorax is unremarkable. IMPRESSION: No fractures or dislocations of the left shoulder.
--- NOTE | 2023-08-02 16:22 | XR_ITS ---
WS: [email or web address] EXAMINATION: XR ankle RT min 3V* [id number] REASON FOR EXAM: PAIN COMPARISON: None available. ORDER DATE: 08/02/2023 4:30 PM TECHNIQUE: 3 views of the right ankle were obtained. X-RAY FINDINGS: No acute osseous or articular abnormality. Soft tissues are unremarkable IMPRESSION: No fractures or dislocations of the right ankle.
--- NOTE | 2023-08-02 16:23 | XR_ITS ---
WS: [email or web address] EXAMINATION: XR shoulder RT min 2V* [id number] REASON FOR EXAM: PAIN COMPARISON: None available. ORDER DATE: 08/02/2023 4:30 PM TECHNIQUE: 3 views of the right shoulder were obtained. X-RAY FINDINGS: No fractures or dislocations. Normal motion of the shoulder with internal/external rotation. No degenerative changes. Acromioclavicular joint appears unremarkable. Limited visualization of the adjacent hemithorax is unremarkable. IMPRESSION: No fractures or dislocations of the right shoulder.
--- NOTE | 2023-08-02 16:23 | XR_ITS ---
WS: [email or web address] EXAMINATION: XR elbow LT 2V [id number] REASON FOR EXAM: PAIN COMPARISON: None available. ORDER DATE: 08/02/2023 4:30 PM FINDINGS: There is no sign of any acute osseous or articular abnormality. There are no specific soft tissue abn ormalities. IMPRESSION: No acute abnormality.
--- NOTE | 2023-08-02 16:24 | XR_ITS ---
WS: [email or web address] EXAMINATION: XR knee LT 3V* [id number] REASON FOR EXAM: PAIN COMPARISON: None available. ORDER DATE: 08/02/2023 4:30 PM FINDINGS: There is no sign of any acute osseous or articular abnormality. There are no specific soft tissue abn ormalities. IMPRESSION: No acute change.
--- NOTE | 2023-08-02 16:24 | XR_ITS ---
WS: [email or web address] EXAMINATION: XR elbow RT 2V [id number] REASON FOR EXAM: PAIN COMPARISON: None available. ORDER DATE: 08/02/2023 4:30 PM FINDINGS: There is no sign of any acute osseous or articular abnormality. There are no specific soft tissue abn ormalities. IMPRESSION: No acute abnormality.
--- NOTE | 2023-08-02 16:24 | XR_ITS ---
WS: [email or web address] EXAMINATION: XR knee RT 3V* [id number] REASON FOR EXAM: PAIN COMPARISON: None available. ORDER DATE: 08/02/2023 4:30 PM FINDINGS: There is no sign of any acute osseous or articular abnormality. There are no specific soft tissue abn ormalities. IMPRESSION: No acute abnormality.
--- NOTE | 2023-08-02 16:25 | XR_ITS ---
WS: [email or web address] EXAMINATION: XR ankle LT min 3V* [id number] REASON FOR EXAM: PAIN COMPARISON: None available. ORDER DATE: 08/02/2023 4:30 PM TECHNIQUE: 3 views of the left ankle were obtained. X-RAY FINDINGS: No acute osseous or articular changes. Soft tissues are unremarkable. IMPRESSION: No fractures or dislocations of the left ankle.
[2023-08-02 16:47] LABS: Basophils % 0.7 %; Eosinophils # 0.2 10^3/uL (0.0-0.8); Eosinophils % 2.7 %; Hematocrit 40.4 % (36-47); Lymphocytes # 1.9 10^3/uL (0.8-4.8); Lymphocytes % 32.3 %; Mean Corpuscular HGB Conc 33.9 g/dL (30-55); Mean Corpuscular Hemoglobin 30.4 pg (27-33); Mean Corpuscular Volume 89.6 fl (85-98); Mean Platelet Volume 9.8 fL (7.4-10.4); Monocytes # 0.3 10^3/uL (0.2-0.9); Monocytes % 5.4 %; Neutrophils # 3.51 10^3/uL (1.8-7.7); Neutrophils % 58.6 %; Nucleated Red Blood Cells % 0 %; Platelet Count 272 10^3/cmm (157-399); Red Blood Count 4.51 10^6/uL (3.85-5.65); White Blood Count 5.98 10^3/uL (3.29-11.43)
[2023-08-02 16:49] LABS: Erythrocyte Sedimentation Rate 7 mm/hr (0-15)
[2023-08-02 17:21] LABS: Hepatitis C Virus Antibody Non-Reactive (Nonreactive)
[2023-08-02 17:33] LABS: Alanine Aminotransferase 9 U/L (0-33); Albumin Level 4.8 g/dL (3.5-5.2); Alkaline Phosphatase 64 U/L (35-105); Anion Gap 12.6 (5-19); Aspartate Amino Transferase 16 U/L (0-32); Blood Urea Nitrogen 11 mg/dL (6-20); Calcium 9.2 mg/dL (8.5-10.5); Carbon Dioxide 29 mmol/L (22-29); Chloride 100 mmol/L (98-107); Creatine Phosphokinase 123 U/L (26-192); Globulin 2.5 g/dL (1.3-4.6); Glomerular Filtration Rate 84.2 mL/min (90-130); Glucose 123 mg/dL (65-115); Osmolality Calculated 287 mOsm/kg (285-295); Potassium 3.6 mmol/L (3.5-5.1); Sodium 138 mmol/L (136-145); Total Bilirubin 0.3 mg/dL (0.15-1.2); Total Protein 7.3 g/dL (6.6-8.7); Uric Acid 4.7 mg/dL (2.4-5.7)
[2023-08-02 20:58] LABS: HIV 1 & 2 Antibody Non-Reactive (Non-Reactiv); HIV 1 & 2 Antigen Non-Reactive (Non-Reactiv)
[2023-08-05 14:40] LABS: Aldolase 3.3 U/L (< OR = 8.1)
== END 2023-08-02 15:49 | disposition home or self-care (01) ==
LOC: LAB 15:55
PROVIDERS: PCP Family Medicine Adult Medicine; Visit Provider Nurse Practitioner Family
DX: M25.572 Pain in left ankle and joints of left foot (principal); M25.571 Pain in right ankle and joints of right foot; M25.562 Pain in left knee; M25.561 Pain in right knee; M25.522 Pain in left elbow; M25.521 Pain in right elbow; M25.512 Pain in left shoulder; M25.511 Pain in right shoulder
CPT/HCPCS: 36415; 73030; 73070; 73562; 73610; 80053; 82085; 82550; 84550; 85025; 85651; 86140; 86431; 86803; 87806

== ENCOUNTER → 2023-12-02 13:32 | Outpatient (BNVA) | payer BC, MEDICAID, SELFPAY | PROVIDERS: PCP Family Medicine Adult Medicine; Visit Provider Obstetrics & Gynecology | DX: R10.2 Pelvic and perineal pain (principal) | CPT/HCPCS: 76830 ==

== ENCOUNTER 2024-05-30 06:59 | Outpatient (CLI) | payer BC, MEDICAID, SELFPAY ==
--- NOTE | 2024-05-30 07:15 | MR_ITS ---
WS: [email or web address] MRI LUMBAR SPINE NONCONTRAST HISTORY: M54.42 - Lumbago with sciatica, left side COMPARISON: 08/13/2022 TECHNIQUE: Sagittal and axial multisequence imaging is submitted. Straightening of the normal lumbar lordosis. Small central disc protrusion is noted at T11-12 and T12 -L1. Mild disc space narrowing and desiccation at L3-4 and L4-5. No fractures or marrow edema. Conus terminates normally at L1-2 disc level. L1-L2: Normal. L2-L3: Normal. L3-L4: Mild annular disc bulging with facet and ligamentum flavum hypertrophy. Shallow RIGHT foramina l disc protrusion with annular fissure. Similar to the prior examination with encroachment upon the e xiting RIGHT L3 nerve root and RIGHT foraminal narrowing. L4-L5: Mild diffuse annular disc bulging with mild facet arthritis. There is a very small RIGHT katherine inal disc protrusion with minimal contact on the exiting RIGHT L4 nerve root. L5-S1: Minimal annular disc bulging. Mild facet arthritis. No stenosis. Paravertebral soft tissues are negative. MR/MR lumbar spine wo con* [id number] IMPRESSION: 1. No acute fracture or marrow edema. 2. Unchanged RIGHT foraminal disc protrusion at L3-4 contacting the exiting RI GHT L3 nerve root. 3. Unchanged RIGHT foraminal disc protrusion at L4-5 with minimal contact on t he exiting RIGHT L4 nerve root. 4. Additional smaller central disc protrusions at T11-12 and T12-L1.
== END 2024-05-30 07:00 | disposition home or self-care (01) ==
LOC: RAD 06:59
PROVIDERS: PCP Family Medicine; Visit Provider Family Medicine
DX: M54.42 Lumbago with sciatica, left side (principal); M54.41 Lumbago with sciatica, right side; G89.29 Other chronic pain; G25.81 Restless legs syndrome; M51.26 Other intervertebral disc displacement, lumbar region
CPT/HCPCS: 72148